=== PATIENT | female | born 1940 | race Caucasian/White ===

== ENCOUNTER 2022-07-14 23:29 | Emergency (ER) | payer MEDICARE ==
[~2022-07-14] VITALS: Ht 149.8 cm; Wt 60.4 kg
[2022-07-14] MEDS ORDERED: ROSUVASTATIN CA10 MG PO (23:38)
[2022-07-14] MEDS ORDERED: AMLODIPINE BES2.5 MG PO (23:38)
[2022-07-14] MEDS ORDERED: TENORMIN25 M1 PO (23:38)
[2022-07-14] MEDS ORDERED: ASPIRIN ADULT L81 M1 PO (23:38)
[2022-07-14] MEDS ORDERED: VIBRA-TAB100 MG PO (23:45)
[2022-07-14] MEDS ORDERED: PREDNISONE10 MG PO (23:45)
[2022-07-14] MEDS ORDERED: PROVENTIL HFA6.7 GM PO (23:45)
[2022-07-14 23:55] LABS: BASO # 0.1 10*3/uL (0.0-0.1); BASO % 0.8 % (0.0-1.0); EOS # 0.3 10*3/uL (0.0-0.4); EOS % 3.2 % (1.0-4.0); HEMATOCRIT 35.6 % (37.0-47.0); LYMPH # 2.5 10*3/uL (1.3-4.4); LYMPH % 25.3 % (27.0-41.0); MEAN CELL VOLUME 92.5 fl (81.0-99.0); MEAN CORPUSCULAR HGB 29.9 pg (27.0-31.0); MEAN CORPUSCULAR HGB CONC 32.3 g/dl (33.0-37.0); MEAN PLATELET VOLUME 9.9 fl (9.6-12.3); MONO # 0.8 10*3/uL (0.1-1.0); MONO % 8.1 % (3.0-9.0); NEUT # 6.1 10*3/uL (2.3-7.9); NEUT % 62.3 % (47.0-73.0); PLATELET COUNT AUTOMATED 261 10*3/uL (130-400); RED BLOOD COUNT 3.85 10*6/uL (4.10-5.10); RED CELL DISTRI WIDTH 14.7 % (0-14.5); WHITE BLOOD COUNT 9.8 10*3/uL (4.8-10.8)
[2022-07-15 00:11] LABS: ALKALINE PHOSPHATASE 68 U/L (46-116); BUN 18 mg/dl (9-23); CHLORIDE 100 mmol/L (98-107); POTASSIUM 4.1 mmol/L (3.4-5.1); SGPT/ALT 29 U/L (10-49); TOTAL PROTEIN 6.1 gm/dL (6.0-8.0)
== END 2022-07-15 01:10 | disposition home or self-care (01) ==
LOC: ED 23:29
PROVIDERS: Emergency Medicine
DX: J40 Bronchitis, not specified as acute or chronic (principal); Z88.1 Allergy status to other antibiotic agents; Z88.8 Allergy status to other drugs, medicaments and biological substances; Z79.899 Other long term (current) drug therapy; Z79.82 Long term (current) use of aspirin